=== PATIENT | female | born 1985 | race Caucasian/White ===

== ENCOUNTER 2022-07-14 21:56 | Emergency (ER) | payer BC ==
[~2022-07-14] VITALS: Ht 170.2 cm; Wt 72.6 kg
--- NOTE | 2022-07-14 22:00 | NUR ---
Dr. Asif at bedside. MSE in progress.
[2022-07-14] MEDS ORDERED: ONDANSETRON 4 MG/2 ML VIAL IV ONE (22:15)
[2022-07-14] MEDS ORDERED: IV NORMAL SALINE 1000 ML BAG IV ONE (22:15)
[2022-07-14] MEDS ORDERED: LORAZEPAM 2 MG/1 ML VIAL IV ONE (22:15)
[2022-07-14] MEDS ORDERED: ONDANSETRON 4 MG/2 ML VIAL ONE (22:29)
[2022-07-14] MEDS ORDERED: LORAZEPAM 2 MG/1 ML VIAL ONE (22:30)
[2022-07-14 22:50] LABS: HEMATOCRIT 38.1 % (31.2-41.9); MEAN CORPUSCULAR HEMOGLOBIN 28.8 uug (24.7-32.8); MEAN CORPUSCULAR VOLUME 84.6 fL (75.5-95.3); PLATELET COUNT (AUTO) 205 K/uL (179-408)
[2022-07-14 23:00] LABS: CARBON DIOXIDE 30 mmol/L (21-32); CHLORIDE 103 mmol/L (98-107); CREATININE 0.9 mg/dL (0.6-1.3); GLUCOSE 125 mg/dL (74-106); UREA NITROGEN, BLOOD 15 mg/dL (7-18)
[2022-07-14 23:50] LABS: *URINE HCG, QUAL NEGATIVE (NEGATIVE)
--- NOTE | 2022-07-15 00:28 | NUR ---
Observed patient walk to restroom with a steady gait.
[2022-07-15 01:20] VITALS: BP 110/75
--- NOTE | 2022-07-15 01:21 | NUR ---
Patient discharged to home in stable condition with . A/O x 4. NAD noted. Ambulatory with a steady gait. All belongings with patient. Written and verbal after care instructions given. Patient verbalizes understanding of instructions. Stressed follow up or return to ER for worsening s/s.
== END 2022-07-15 01:22 | disposition home or self-care (01) ==
LOC: ER 21:58
DX: R07.89 Other chest pain (principal); R11.0 Nausea; F41.9 Anxiety disorder, unspecified; E03.9 Hypothyroidism, unspecified
CPT/HCPCS: 99285; 96374; 71045; 96361; 96375; 80048; 84703; 85025; 84484 ×2; 36415 ×2; 93005; J2060; J2405; J7040; A4663

== ENCOUNTER 2022-07-20 16:38 | Emergency (ER) | payer BC ==
[~2022-07-20] VITALS: Ht 172.7 cm; Wt 73.5 kg
[2022-07-20] MEDS ORDERED: LORA0.5T48 PO (17:05)
[2022-07-20] MEDS ORDERED: ESCI5TAB PO (17:05)
[2022-07-20] MEDS ORDERED: LEVO100T10 PO (17:05)
[2022-07-20] MEDS ORDERED: LORAZEPAM 2 MG/1 ML VIAL IV ONE (17:15)
[2022-07-20 17:23] LABS: HEMATOCRIT 40.5 % (31.2-41.9); MEAN CORPUSCULAR HEMOGLOBIN 29.1 uug (24.7-32.8); MEAN CORPUSCULAR VOLUME 83.8 fL (75.5-95.3); PLATELET COUNT (AUTO) 265 K/uL (179-408)
[2022-07-20 17:33] LABS: CARBON DIOXIDE 21 mmol/L (21-32); CHLORIDE 103 mmol/L (98-107); CREATININE 0.8 mg/dL (0.6-1.3); GLUCOSE 103 mg/dL (74-106); POTASSIUM 3.7 mmol/L (3.5-5.1); UREA NITROGEN, BLOOD 9 mg/dL (7-18)
[2022-07-20] MEDS ORDERED: LORAZEPAM 2 MG/1 ML VIAL ONE (17:35)
[2022-07-20 17:50] LABS: *BILIRUBIN,URIN NEGATIVE (NEGATIVE); *BLOOD, URINE NEGATIVE (NEGATIVE); *CLARITY,URINE CLEAR (CLEAR); *COLOR,URINE YELLOW (YELLOW); *KETONES,URINE 4+ (NEGATIVE); LEUKOCYTE ESTERASE ,URINE NEGATIVE (NEGATIVE); NITRITE, URINE NEGATIVE (NEGATIVE); UGLUCOSE NEGATIVE (NEGATIVE)
[2022-07-20 17:51] LABS: *URINE HCG, QUAL NEG (NEGATIVE)
[2022-07-20] MEDS ORDERED: IV NS 1000 ML 1,000 ML IV ONE (18:00)
--- NOTE | 2022-07-20 19:27 | NUR ---
Patient discharged to home in stable condition. Written and verbal after care instructions given. Patient verbalizes understanding of instructions. Stressed follow up or return to ER for worsening s/s. Patient out of ER with steady gait, no acute signs of distress, VSS, all belongings taken, IV site discontinued, provided with copies of lab and Xray results.
[2022-07-20 19:28] VITALS: BP 115/78
== END 2022-07-20 19:28 | disposition home or self-care (01) ==
LOC: ER 16:38
DX: F41.9 Anxiety disorder, unspecified (principal); R07.89 Other chest pain; E86.0 Dehydration; E03.9 Hypothyroidism, unspecified; Z79.899 Other long term (current) drug therapy
CPT/HCPCS: 99285; 96374; 71045; 96361; 80048; 81003; 84703; 85025; 85379; 84484 ×2; 36415; 93005; J2060; J7040; A4663